=== PATIENT | male | born 1995 | race Caucasian/White ===

== ENCOUNTER 2022-04-18 19:40 | Emergency (ER) | payer SELFPAY ==
[~2022-04-18] VITALS: Ht 180.3 cm; Wt 76.3 kg
[2022-04-18] MEDS ORDERED: IBUPROFEN 400MG TABLET PO ONE (20:30)
[2022-04-18] MEDS: IBUPROFEN 400MG TABLET PO NR (23:20)
[2022-04-19 01:16] VITALS: BP 117/66
[2022-04-19] MEDS: IBUPROFEN 400MG TABLET PO NR (01:16)
[2022-04-19] MEDS ORDERED: IBUP-2028 MT (01:33)
== END 2022-04-19 01:42 | disposition home or self-care (01) ==
LOC: ER 19:40 → EDBD 19:40 → ER 04-19 01:42
DX: M25.572 Pain in left ankle and joints of left foot (principal); Z59.00 Homelessness unspecified
CPT/HCPCS: 73610; 99283